=== PATIENT | male | born 1960 | race Asian ===

== ENCOUNTER 2023-12-18 12:57 | Emergency (ER) | payer OTHER ==
[~2023-12-18] VITALS: Ht 177.8 cm; Wt 79.0 kg
[2023-12-18 13:05] VITALS: BP 170/96; TEMP 98.1
[2023-12-18] MEDS ORDERED: SITA25 PO (13:08)
[2023-12-18] MEDS ORDERED: METF-1211 PO (13:08)
[2023-12-18] MEDS ORDERED: LISI-892 PO (13:08)
[2023-12-18] MEDS ORDERED: ATOR10TA PO (13:08)
[2023-12-18 13:10] LABS: COVID AG,FIA SOURCE NASAL SWAB
[2023-12-18] MEDS ORDERED: LORA10TA7 PO (13:13)
[2023-12-18] MEDS ORDERED: ATOR40TA71 PO (13:13)
[2023-12-18] MEDS ORDERED: SITA100 PO (13:13)
[2023-12-18] MEDS ORDERED: TAMS0.4C94 PO (13:13)
[2023-12-18] MEDS ORDERED: LISI40TA9 PO (13:13)
[2023-12-18 14:06] LABS: INFLUENZA TYPE A NEGATIVE FOR TYPE A (NEGATIVE); INFLUENZA TYPE B NEGATIVE FOR TYPE B (NEGATIVE); SARS-COV2 (COVID) ANTIGEN,FIA Negative (Negative)
[2023-12-18] MEDS ORDERED: ALBUTEROL SULFATE 2.5 MG/0.5 ML NEB SOLUTION NEB ONE (15:00)
[2023-12-18] MEDS ORDERED: IPRATROPIUM BROMIDE 0.5 MG/2.5 ML NEB SOLUTION NEB ONE (15:00)
[2023-12-18 15:32] VITALS: PULSE 84; RESP 16; O2SAT 98
[2023-12-18 15:34] VITALS: PULSE 89; RESP 16; O2SAT 98
[2023-12-18] MEDS ORDERED: BENZ-227 PO (15:42)
[2023-12-18] MEDS ORDERED: AZIT250T9 PO (15:42)
== END 2023-12-18 16:06 | disposition home or self-care (01) ==
LOC: EDBD 12:57 → EMS 12:57
DX: J18.9 Pneumonia, unspecified organism (principal); E11.9 Type 2 diabetes mellitus without complications; E78.00 Pure hypercholesterolemia, unspecified; I10 Essential (primary) hypertension; N40.0 Benign prostatic hyperplasia without lower urinary tract symptoms; Z20.822 Contact with and (suspected) exposure to COVID-19
CPT/HCPCS: 71045; 87804; 94640; 99284; J7613